=== PATIENT | male | born 1955 | race Caucasian/White ===

== ENCOUNTER 2018-11-23 04:57 | Inpatient (IN) ==
--- NOTE | 2018-11-14 07:57 | History & Physical Report ---
Date of Service November 14, 2018 Date of Surgery: 11-23-18 Assessment & Plan (1) Tricompartment osteoarthritis of right knee: Risks and benefits of procedure discussed in detail today, patient would like to proceed with a Right total knee replacement at [facility] as scheduled. obtain PATs at [facility]. Will place on ASA 81mg po bid x 1 month post op, f/u 2 weeks post op for routine post-operative care and x-ray, sooner if having any problems. will make arrangements for OPPT at the time of discharge. At this point in time, has failed conservative measures and would like to proceed with surgical intervention. History of Present Illness Chief Complaint: right knee pain Primary Care Provider: Levi Chan Mr Horn is a 63 year old male who is here for a follow up of right knee pain, presents for pre-op evaluation prior to a Right total knee replacement at [facility]. He presents with pain and decreased range of motion on the right side. He states that the symptoms have been chronic non-traumatic and occur intermittently. Currently the patient states that the symptoms are moderate and is described as throbbing and aching. He rates his current pain as 3/10 and worst is 7/10. The symptoms are aggravated by daily activities, walking and repetitive activities. In addition to right knee pain the patient is also experiencing crepitus, decreased mobility, instability, joint pain, limping, and stiffness. Prior NSAIDs include Motrin and Aleve and prior pain medications include Tylenol. Burke states that the symptoms are relieved by no specific activities. He has had previous xrays as well as MRI that shows degenerative changes medial compartment and patellofemoral joint. Allergies Allergy/AdvReac Type Severity Reaction Status Date / Time No Known Allergies Allergy Verified 11/09/18 15:36 Home Medications Home Medications Medication Instructions Recorded Confirmed Type multivitamin 1 tab PO QAM 11/09/18 11/09/18 History Past Med/Surg History Medical History Cardiac murmur as a child Heartburn History of hypertension Osteoarthritis Surgical History History of cardiac cath 1979 - [facility] - no stents/angioplasty History of tooth extraction Hx of aortic coarctation repair 1979 Family History Brother Family history of diabetes mellitus Social History Preferred Language: Ivorian Communication Ability: Effective Staff Command And Control Officer Required: No Beliefs That Will Affect Care: None Current Living Situation: Significant Other Other Information That Helps Us Care for You: No Feels Safe at Home: Yes Safety Concerns: Feels Safe At This Time Smoking Status: Never smoker Do You Dip or Chew Tobacco: No Second Hand Exposure: No Hx Alcohol Use: No Hx Substance Use: No Review of Systems Review of Systems: All systems reviewed & are unremarkable except as noted in HPI & below Constitutional: no fever, no chills and no sweats Respiratory: no cough and no dyspnea Cardiovascular: no chest pain, no dyspnea and no orthopnea Gastrointestinal: no abdominal pain, no nausea and no vomiting Musculoskeletal: as per Subjective / HPI Physical Exam Physical Exam: Ht: 5ft 11in Wt: 102 kg BP: 122/76 Pulse: 74 Constitutional: WD/WN, vitals as above no acute distress Respiratory: normal respiratory effort, lungs clear to auscultation no respiratory distress, no labored breathing and does not use accessory muscles Cardiovascular: RRR, no murmur, no edema Gastrointestinal (Abdomen): normal bowel sounds, soft, nontender, no hepatosplenomegaly Musculoskeletal: Right Knee Exam: Burke ambulates with a limp, there is no atrophy or ecchymosis no erythema, mild effusion, diffuse tenderness to the knee greatest over medial compartment, positive crepitation with motion, marty's negative, Posterior drawer- negative, anterior drawer negative, valgus stress negative, varus stress negative, no extensor lag, pain with active range of motion, Range of motion 0/3/115. No pain with active/passive ROM of ankle. Lower extremity strength normal. Lower extremity neuro-vascular is normal Results & Data Diagnostic Findings Right Knee X-ray from 10-17-18 showing advanced degenerative changes to the right knee particuarly medial compartment and the patellofemoral joint. xrays show narrowing of the medial compartment and patello-femoral joint with patellar spurring noted, there is osteophyte formation and subchondral sclerosis noted. overall varus alignment. no acute bony pathology noted.
--- NOTE | 2018-11-14 11:51 | Anesthesiology Consultation ---
Date of Service November 14, 2018 Assessment & Plan (1) Encounter for pre-operative examination: PCP clearance (Dr. Chan) 11/16 -- "Pre-op labs reviewed. Has LAD and possible old inferior OK (doubtful) but nothing acute. Labs and CXR look good. I think he is medically stable for surgery with mild increase surgical risk." Chart Review Chart Review: Acceptable Risk for Surgery and Patient seen in Pre Admission Testing Teaching & Discussion Instructed NPO after midnight before surgery, except medications with 15 cc of water. Medication instructions provided according to the PAT guidelines. History Surgery Operation Date: 11/23/18 07:00 Proposed Procedures p Right Total Knee Arthroplasty - Venancio Coulter DO Height/Weight Height: 5 ft 11 in Weight: 102.4 kg Allergies Allergy/AdvReac Type Severity Reaction Status Date / Time No Known Allergies Allergy Verified 11/09/18 15:36 Medications Home Medications Medication Instructions Recorded Confirmed Last Taken multivitamin 1 tab PO QAM 11/09/18 11/09/18 Unknown Past Medical History Medical History Heartburn History of hypertension PT reports being on a medication "at some point," self discontinued. 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, cuts firewood) Past Family History Family History Brother Family history of diabetes mellitus Past Surgical History Surgical History History of cardiac cath 1979 - [facility] - no stents/angioplasty History of tooth extraction Hx of aortic coarctation repair 1979 Past Anesthesia History No Hx of Anesthesia Complications and No Family Hx of Anesthesia Complications History of PONV No Hx of PONV and No Hx of Motion Sickness Social History Smoking Status: Never smoker Do You Dip or Chew Tobacco: No Hx Alcohol Use: No Hx Substance Use: No substance use type: does not use Review of Systems Pt denies any recent chest pain, shortness of breath, palpitations, cough, fever or URI. Physical Exam Vital Signs BP: 137/87 P: 65bpm SPO2: 96% RA T: 97.6 F R: 12 ENMT Mouth: + dental restorations (one cap on a molar); no chipped teeth and no loose teeth Thyromental Distance: > or= 3.5 Finger Breadths (3.5) Mallampati Class: II Neck normal visual inspection and + limited neck extension (mildly) Respiratory normal respiratory effort Auscultation: lungs clear to auscultation bilaterally Cardiovascular Rate/Rhythm: regular rate and regular rhythm Heart Sounds: no murmur Vessels: no carotid bruit Extremities: no edema Distant heart sounds. Testing Laboratory Results 11/14/18 12:42 11/14/18 12:42 PT 10.3 Seconds (9.0-12.0) 11/14/18 12:42 INR 1.0 (0.9-1.1) 11/14/18 12:42 APTT 26.6 Seconds (21.0-31.0) 11/14/18 12:42 Hemoglobin A1c 6.1 % (4.5-5.6) H 11/14/18 12:42 Urine Color Yellow 11/14/18 Unknown Urine Appearance Clear (Clear) 11/14/18 Unknown Urine pH 8.0 (4.5-7.5) H 11/14/18 Unknown Ur Specific [place] 1.023 (1.000-1.030) 11/14/18 Unknown Urine Protein Negative (Negative) 11/14/18 Unknown Urine Glucose (UA) Negative (Negative) 11/14/18 Unknown Urine Ketones Negative (Negative) 11/14/18 Unknown Urine Nitrite Negative (Negative) 11/14/18 Unknown Ur Leukocyte Esterase Negative (Negative) 11/14/18 Unknown Blood Type O Negative 11/14/18 12:42 Antibody Screen NEGATIVE 11/14/18 12:42 11/14/18 Unknown Urine Culture - Final Urine,Clean Catch No growth - less than 1,000 colonies/mL. Electrocardiogram Date: 11/14/18 Findings: + NSR @ (60) Left axis deviation. Cannot r/o inferior infarct, age undetermined. No previous EKGs available. Chest X-Ray Date: 11/14/18 Findings: + NAD
--- NOTE | 2018-11-14 12:00 | PAT Medication Instructions ---
Medication Instructions Date of Service November 14, 2018 Home Medications multivitamin 1 tab PO QAM DO NOT take the morning of surgery multivitamin 1 tab PO QAM Other Notes If you have any questions please call us at [phone] or [phone] or [phone] or [phone]
[2018-11-14 13:20] LABS: Basophils # (auto) 0.01 K/uL (0-0.2); Basophils % (auto) 0.1 %; Eosinophils # (auto) 0.19 K/uL (0-0.5); Eosinophils % (auto) 2.2 %; Hemoglobin 16.6 g/dL (14.0-18.0); Immature Granulocytes # (auto) 0.04 K/uL (0.00-0.02); Immature Granulocytes % (auto) 0.5 %; Lymphocytes # (auto) 1.98 K/uL (1.2-3.4); Lymphocytes % (auto) 23.4 %; Mean Corpuscular Hgb Conc 35.3 g/dL (32-36); Mean Platelet Volume 11.6 fL (7.4-10.4); Monocytes # (auto) 0.54 K/uL (0.11-0.59); Monocytes % (auto) 6.4 %; Neutrophils % (auto) 67.4 %; Platelet Count 183 K/uL (130-400); RDW Coefficient of Variation 13.7 % (11.5-14.5); RDW Standard Deviation 44.2 fL (36.4-46.3); Red Blood Count 5.34 M/uL (4.7-6.1); White Blood Count 8.46 K/uL (4.8-10.8)
[2018-11-14 13:23] LABS: Appearance Urine Clear (Clear); Bilirubin Urine Negative (Negative); Blood Urine Negative (Negative); Color Urine Yellow; Glucose Urine UA Negative (Negative); Ketones Urine Negative (Negative); Leukocyte Esterase Urine Negative (Negative); Nitrite Urine Negative (Negative); Protein Urine Negative (Negative); Specific Gravity Urine 1.023 (1.000-1.030); Urobilinogen Urine Negative (Negative)
[2018-11-14 13:30] LABS: Partial Thromboplastin Time 26.6 Seconds (21.0-31.0); Prothrombin Time 10.3 Seconds (9.0-12.0)
--- NOTE | 2018-11-14 13:31 | XRay Report ---
XR chest Pre-admission PA/Lat HISTORY: 63 years-old Male pat preoperative exam. No acute chest complaints COMPARISON: None available TECHNIQUE: PA and lateral views of the chest FINDINGS: Cardiomediastinal and hilar silhouettes are within normal limits. A surgical clip projects over the u pper mediastinal distribution. There is no pneumothorax, pleural effusion, focal airspace consolidati on or overt pulmonary edema. Degenerative changes of the shoulders and spine. IMPRESSION: No acute process. The above report was generated using voice recognition software. It may contain grammatical, syntax o r spelling errors. Electronically signed by: Xu Wilson M.D. 11/14/2018 1:30 PM
[2018-11-14 13:46] LABS: Estimated Average Glucose 128 mg/dl; Hemoglobin A1C 6.1 % (4.5-5.6)
[2018-11-14 15:05] LABS: Albumin Level 3.9 gm/dl (3.4-5.0); BUN Creatinine Ratio 15.9 (10-20); Calcium 9.1 mg/dl (8.5-10.1); Creatinine Clr Calc Pharmacy 81.6 ml/min; Est GFR (African American) 81.2; Est GFR (Non-African American) 70.1; Potassium 4.5 mmol/L (3.5-5.1)
[2018-11-23] MEDS ORDERED: METOCLOPRAMIDE HCL 10 MG TABLET PO SCH (06:00)
[2018-11-23] MEDS ORDERED: FAMOTIDINE 20 MG TAB PO SCH (06:00)
[2018-11-23] MEDS ORDERED: CEFAZOLIN 2000MG 2,000 MG/15 ML SYR IV SCH (06:00)
[2018-11-23] MEDS ORDERED: GABAPENTIN 300 MG CAP PO SCH (06:00)
[2018-11-23] MEDS ORDERED: dexAMETHasone 4 MG TAB PO SCH (06:00)
[2018-11-23] MEDS ORDERED: ROPIVACAINE 0.5% HCL/PF 150 MG, BUPIVACAINE 0.5% MPF 30 ML, EPINEPHrine 30MG/30ML (OR U... INFIL SCH (06:00)
[2018-11-23] MEDS ORDERED: TRANEXAMIC ACID 1,000 MG **IV Pre-op IV SCH (06:00)
[2018-11-23] MEDS ORDERED: LR 500ML BOLUS, THEN 15ML/HR IV SCH (06:00)
[2018-11-23] MEDS ORDERED: CeleBREX 200 MG CAP PO SCH (06:00)
[2018-11-23] MEDS ORDERED: ACETAMINOPHEN 500 MG TAB PO SCH (06:00)
[2018-11-23] MEDS ORDERED: EPINEPHrine INJ 1 MG/ML AMP ONE (06:22)
[2018-11-23] MEDS ORDERED: ROPIVACAINE 0.5% 5 MG/ML 30 ML VIAL ONE (06:22)
[2018-11-23] MEDS ORDERED: BUPIVACAINE 0.5 % 5 MG/1 ML PF 10ML VIAL ONE (06:22)
[2018-11-23] MEDS ORDERED: TRANEXAMIC ACID 1,000 MG **IV Intra-op IV SCH (06:30)
[2018-11-23] MEDS ORDERED: BACITRACIN INJ 50,000 UNIT VIAL ONE (06:35)
[2018-11-23] MEDS ORDERED: ORTHO JOINT ANESTHETIC ONE (06:35)
[2018-11-23] MEDS ORDERED: MIDAZOLAM HCL 1 MG/ML 2ML VIAL ONE (06:40)
--- NOTE | 2018-11-23 07:02 | History & Physical Bridge Note ---
Date of Service November 23, 2018 History & Physical Bridge Note I have examined the patient, reviewed the History & Physical and in the interval since the performance of the History & Physical I have noted the following changes of clinical significance: no changes noted
[2018-11-23] MEDS ORDERED: ATROPINE SULFATE 0.1 MG/ML 10ML SYR IV PRN (07:15)
[2018-11-23] MEDS ORDERED: ePHEDrine sulfate 50 MG/ML AMP IV PRN (07:15)
[2018-11-23] MEDS ORDERED: fentaNYL citrate 100 MCG/2 ML VIAL IV PRN (07:15)
[2018-11-23] MEDS ORDERED: ONDANSETRON INJ 2 MG/ML 2 ML VIAL IV PRN ×2 (07:15→10:19)
[2018-11-23] MEDS ORDERED: HYDROmorphone INJ 1 MG/ML SYRINGE IV PRN (07:15)
[2018-11-23] MEDS ORDERED: PROPOFOL IV EMULSION 10 MG/ML 20 ML VIAL IV ONE ×2 (07:45→07:54)
[2018-11-23] MEDS ORDERED: LIDOCAINE HCL 2% 2 ML VIAL/AMP(20MG/ML) INFIL ONE (07:45)
[2018-11-23] MEDS ORDERED: ePHEDrine sulfate 50 MG/ML SYR ONE (08:05)
--- NOTE | 2018-11-23 08:12 | Operative Report ---
Post Operative Report Pre & Post Diagnosis Operation Date: 11/23/18 07:00 Pre-Op Diagnosis: Unilateral Primary Osteoarthritis, Right Knee Post-Op Diagnosis: Unilateral Primary Osteoarthritis, Right Knee Procedure Operation Date: 11/23/18 07:00 Actual Procedures p Right Total Knee Arthroplasty(Right) utilizing [employer] journey to non- block total knee arthroplasty right size 5 femur 5 tibia 10 polyethylene 35 oval patella- Venancio Coulter DO Surgeon Venancio Coulter DO Bale Piler Jus WARNER Estimated Blood Loss 5 Findings Consistent with Post-Op Diagnosis Patient presents with severe end-stage tricompartmental degenerative joint disease of the right knee with varus alignment subchondral cystic changes marginal osteophyte eburnated bone moderate to large effusion no response to conservative management the above intraoperative findings were noted. Specimens Bone and cartilage Drains Medium bore Hemovac Complications none Disposition Accompanied Patient To Recovery: No Disposition: Recovery Room Indications Patient presents as a 64-year-old white male with severe end-stage tricompartmental degenerative joint disease failing attempts at conservative management and physical therapy anti-inflammatories relative rest activity modification corticosteroid injections Visco supplementation patient presents for right total knee arthroplasty Description of Procedure After proper prepping and draping of the Right lower extremity anterior midline incision was made over the region of the extensor extensor mechanism after meticulous hemostasis was obtained and maintained in subcutaneous tissues a medial parapatellar incision was made The patella was subluxed lateralward the medial lateral gutter were cleaned from any hypertrophic synovitis and scar tissue of the distal femoral block was placed and the distal femoral osteotomy cut was made subsequently the chamfers anterior and posterior osteotomy cuts were made utilizing the 4-in-1 block the tibia was subsequently subluxed anteriorward medial and ateral meniscal remnants were excised in their entirety remnants of the anterior and posterior cruciate ligaments were excised in their entirety excellent exposure of the proximal tibia was obtained the tibial osteotomy guide was placed on the proximal tibial osteotomy cut was made once again the knee was irrigated with copious amounts of sterile saline solution the patella was subsequently everted lateralward thickened scar tissue around the patella was removed the patella was subsequently cut utilizing a freehand technique and was drilled prepared for final preparation and placement of patella socially flexion-extension gaps were checked and the equal and symmetric trials were placed to the appropriate femoral and tibial trials with poly-spacer being placed for equal flexion and extension gaps and full range of motion including extension to 0 and flexion to 140 the trial components after having been taken to recovery range of motion was subsequently removed meticulous hemostasis was obtained and maintained subsequently a knee block injection of joint cocktail including ropivacaine 0.5% 150 mg. Bupivacaine 0.5% epinephrine 1-200,030 mL's toradol 30 mg dexamethasone 4 mg ketamine 10 mg clonidine 100 micrograms normal saline solution 30 mg was infiltrated into the soft tissues of the posterior knee medial lateral gutters and periosteal synovium special attention was paid to protect neurovascular structures at all times subsequently trial components having been removed the knee was irrigated with sterile saline solution. debris was removed the proximal tibia was subsequently prepared and was made ready for the placement of the tibial component tibial component was also cemented and tamped into position the femoral component was subsequently placed and cemented in the position the patellar component was subsequently cemented in position because hemostasis once again obtained and maintained wound having been thoroughly irrigated with debridement and debridement lavage was performed as well as a medial parapatellar incision closed with #1 Vicryl in interrupted fashion subcutaneous was closed with #2 Vicryl skin was closed with skin clips. PA-C was necessary for prepping and drapping as well as wound closure of deep fascia Sub cutaneous tissue and skin and was necessary for the case. A sterile compressive dressing was placed patient was taken to recovery in stable condition of report dictated by Yfn I attest to the content of the Intraoperative Record and any orders documented therein. Any exceptions are noted below. I attest to the content of the Intraoperative Record and any orders documented therein. Any exceptions are noted below.
--- NOTE | 2018-11-23 09:10 | XRay Report ---
XR knee RT 2V routine CLINICAL HISTORY: Surgical Post Op DEGENERATIVE ARTHRITIS COMPARISON: None. DISCUSSION: There are postsurgical changes of a total right knee arthroplasty and patellar resurfacin g. Overlying skin rose marie and surgical drains are evident. There is air within the soft tissues consi stent with recent surgery. The femoral and tibial components appear well seated. IMPRESSION: Postsurgical changes of a total right knee arthroplasty. Electronically signed by: Jacob King M.D. 11/23/2018 9:08 AM
--- NOTE | 2018-11-23 09:55 | Anesthesiology Progress Note ---
Date of Service November 23, 2018 Anesthesia Post Procedure Vital Signs Vital Signs: Temp Pulse Pulse Resp BP Pulse Ox 11/23/18 09:50 58 L 15 118/68 93 11/23/18 09:40 67 16 116/70 94 11/23/18 09:30 68 16 123/69 94 11/23/18 09:20 36.4 C L 73 16 125/74 94 11/23/18 09:10 74 16 121/70 94 11/23/18 09:00 75 16 126/73 95 11/23/18 08:51 36.0 C L 74 14 110/57 L 95 11/23/18 05:36 36.6 C 72 20 156/100 H Pain Intensity Right Knee: Pain Intensity: 2 Transfer of Care Handoff Completed per policy Notes Mental Status: alert / awake / arousable and participated in evaluation Patient Amnestic to Procedure: Yes Nausea / Vomiting: adequately controlled Pain: adequately controlled Airway Patency, RR, SpO2: stable & adequate BP & HR: stable & adequate Hydration State: stable & adequate Neuraxial Anesthesia: was administered and sensory block is resolving Anesthetic Complications: no major complications apparent and Pt Satisfied with anesthetic care
[2018-11-23] MEDS ORDERED: NALOXONE HCL 0.4 MG/1 ML VIAL/CARP IV PRN (10:19)
[2018-11-23] MEDS ORDERED: BISACODYL 10 MG SUPP PR PRN (10:19)
[2018-11-23] MEDS ORDERED: HYDROmorphone INJ 0.5 MG/0.5 ML SYR IV PRN (10:19)
[2018-11-23] MEDS ORDERED: METOCLOPRAMIDE HCL INJ 5 MG/ML 2 ML VIAL IV PRN (10:19)
[2018-11-23] MEDS ORDERED: ALUMINUM/MAGNESIUM SUSP 30 ML UDC PO PRN (10:19)
[2018-11-23] MEDS ORDERED: OXYCODONE HCL IR 5 MG TAB (IMMEDIATE RELEASE) PO PRN (10:19)
[2018-11-23] MEDS ORDERED: SODIUM CHLORIDE 0.9% 1000ML 1,000 ML IV SCH (10:19)
[2018-11-23] MEDS ORDERED: MAGNESIUM HYDROXIDE SUSP 30 ML UDC PO PRN (10:19)
[2018-11-23] MEDS: KETOROLAC TROMETHAMINE 15 MG/ML VIAL IV SCH ×2 (12:02→17:43)
[2018-11-23] MEDS: DOCUSATE SODIUM 100 MG CAP PO SCH ×2 (12:06→21:28)
[2018-11-23] MEDS: MULTIVITAMIN TAB PO SCH (12:58)
[2018-11-23] MEDS: ACETAMINOPHEN 500 MG TAB PO SCH ×2 (13:14→21:28)
[2018-11-23] MEDS: CEFAZOLIN 2000MG 2,000 MG/15 ML SYR IV SCH ×2 (15:20→22:09)
[2018-11-23] MEDS: FERROUS GLUCONATE 324 MG TAB PO SCH (17:43)
[2018-11-23] MEDS ORDERED: Nursing to Pharmacy Communication ONE (19:57)
[2018-11-23] MEDS ORDERED: SENNA 8.6 MG TAB PO SCH (21:00)
[2018-11-23] MEDS: ASPIRIN 81 MG ECTAB PO SCH (21:29)
[2018-11-24] MEDS: KETOROLAC TROMETHAMINE 15 MG/ML VIAL IV SCH ×3 (00:12→11:56)
[2018-11-24] MEDS: ACETAMINOPHEN 500 MG TAB PO SCH ×2 (05:39→13:29)
[2018-11-24 06:07] LABS: Hematocrit (blood only) 39.5 % (42-52); Hemoglobin 13.9 g/dL (14.0-18.0); Mean Corpuscular Hgb Conc 35.2 g/dL (32-36); Mean Corpuscular Volume 86.8 fL (80-100); Mean Platelet Volume 11.4 fL (7.4-10.4); Platelet Count 175 K/uL (130-400); RDW Coefficient of Variation 13.9 % (11.5-14.5); RDW Standard Deviation 43.8 fL (36.4-46.3); Red Blood Count 4.55 M/uL (4.7-6.1); White Blood Count 18.79 K/uL (4.8-10.8)
[2018-11-24 06:45] LABS: BUN Creatinine Ratio 18.1 (10-20); Est GFR (African American) 77.8; Est GFR (Non-African American) 67.1; Potassium 4.2 mmol/L (3.5-5.1)
--- NOTE | 2018-11-24 08:00 | Anesthesiology Progress Note ---
Date of Service November 24, 2018 Anesthesia Post Procedure Vital Signs Vital Signs: Temp Pulse Pulse Resp BP Pulse Ox 11/24/18 07:24 36.6 C 69 20 120/77 97 11/24/18 03:53 37.0 C 65 18 126/73 95 11/23/18 23:52 36.6 C 64 17 125/69 94 11/23/18 20:06 36.9 C 61 18 138/74 96 11/23/18 16:35 36.6 C 73 16 133/75 95 11/23/18 13:10 36.5 C 75 18 133/67 96 11/23/18 12:09 73 20 126/64 95 11/23/18 11:10 71 18 119/72 96 11/23/18 10:39 36.5 C 63 18 114/65 95 11/23/18 10:10 36.6 C 65 14 111/67 96 11/23/18 09:50 58 L 15 118/68 93 11/23/18 09:40 67 16 116/70 94 11/23/18 09:30 68 16 123/69 94 11/23/18 09:20 36.4 C L 73 16 125/74 94 11/23/18 09:10 74 16 121/70 94 11/23/18 09:00 75 16 126/73 95 11/23/18 08:51 36.0 C L 74 14 110/57 L 95 Pain Intensity Right Knee: Pain Intensity: 2 Notes Mental Status: alert / awake / arousable and participated in evaluation Patient Amnestic to Procedure: Yes Nausea / Vomiting: adequately controlled Pain: adequately controlled Airway Patency, RR, SpO2: stable & adequate BP & HR: stable & adequate Hydration State: stable & adequate Neuraxial Anesthesia: was administered and sensory block resolved Anesthetic Complications: no major complications apparent and Pt Satisfied with anesthetic care
[2018-11-24] MEDS: DOCUSATE SODIUM 100 MG CAP PO SCH (09:15)
[2018-11-24] MEDS: ASPIRIN 81 MG ECTAB PO SCH (09:16)
[2018-11-24] MEDS: FERROUS GLUCONATE 324 MG TAB PO SCH (09:16)
[2018-11-24] MEDS: MULTIVITAMIN TAB PO SCH (09:16)
--- NOTE | 2018-11-24 10:00 | Orthopedic Progress Note ---
Date of Service November 24, 2018 Assessment & Plan (1) Tricompartment osteoarthritis of right knee: 63 yo male stable POD #1 s/p right TKA 1. Med management 2. DVT prophylaxis- ASA, SCDs 3. PT/OT 4. D/C planning- home w/ OPPT when drain output decreases Subjective Pt resting in chair, pain controlled, denies complaints, would like to be d/c'd if possible, told depends on drain output Physical Exam Physical Exam: Toes mobile, N/V/I, dressing and drain in place Results & Data Vital Signs (Past 12 Hours) Vital Signs Temp Pulse Resp BP Pulse Ox 11/24/18 07:24 36.6 C 69 20 120/77 97 11/24/18 03:53 37.0 C 65 18 126/73 95 11/23/18 23:52 36.6 C 64 17 125/69 94 Laboratory Results 11/24/18 11/24/18 11/23/18 Range/Units 05:48 05:48 05:42 WBC 18.79 H (4.8-10.8) K/uL RBC 4.55 L (4.7-6.1) M/uL Hgb 13.9 L (14.0-18.0) g/dL Hct 39.5 L (42-52) % MCV 86.8 (80-100) fL MCH 30.5 (25-34) pg MCHC 35.2 (32-36) g/dL RDW Std Deviation 43.8 (36.4-46.3) fL RDW Coeff of Raghav 13.9 (11.5-14.5) % Plt Count 175 (130-400) K/uL MPV 11.4 H (7.4-10.4) fL Sodium 139 (136-145) mmol/L Potassium 4.2 (3.5-5.1) mmol/L Chloride 109 H (98-107) mmol/L Carbon Dioxide 24 (21-32) mmol/L Anion Gap 6.0 (3-11) BUN 21 H (7-18) mg/dl Creatinine 1.14 (0.6-1.4) mg/dl Est Cr Clr Drug Dosing 79.0 ml/min Est GFR ( Amer) 77.8 Est GFR (Non-Af Amer) 67.1 BUN/Creatinine Ratio 18.1 (10-20) Glucose 129 H (70-99) mg/dl Calcium 8.0 L (8.5-10.1) mg/dl Hepatitis C Ab Screen Neg (Neg)
--- NOTE | 2018-11-26 19:39 | Discharge Summary ---
DISCHARGE DIAGNOSIS: Degenerative joint disease, right knee. SECONDARY DIAGNOSES: Cardiac murmur as a child, heartburn, history of hypertension, osteoarthritis. CONSULTS: None. COMPLICATIONS: None. PROCEDURES: Right total knee arthroplasty performed by Dr. Coulter on 11/23/2018. BRIEF HISTORY: As dictated in the history and physical. HOSPITAL SUMMARY: The patient was admitted on the above-noted date and had the above-noted surgery performed, which he tolerated well. On the first postoperative day, patient was resting in a chair at the bedside. Pain was controlled. He had no complaints and was asking to be discharged to home if possible. It was discussed that he would have to depend on his drain output and also how he does in PT and OT protocols. Toes were mobile. Neurovascularly intact. Dressings and drain were in place. Vital signs were stable. He was afebrile. Hemoglobin was 13.9 and he was started on PT and OT protocols and he was continued on his DVT prophylaxis and pain management. He progressed well with his physical therapy, ambulating 325 feet x2 and was remaining stable. Drain was removed and it was felt he could be discharged to home. For further review, please see chart. LABORATORY AND X-RAY DATA: As per chart. DISCHARGE INSTRUCTIONS: The patient was discharged home in satisfactory condition on 11/24/2018. DIET: Regular. ACTIVITY: Weightbearing as tolerated on the affected extremity. Follow TKA instruction sheets and special care instructions as noted. Follow up with Dr. Coulter in 2 weeks. The patient to call for appointment if one has not been made for you. DISCHARGE MEDICATIONS: Acetaminophen 1000 mg p.o. q.8 hours, aspirin 81 mg p.o. b.i.d., oxycodone 5 mg p.o. q.6 hours p.r.n. and resume taking a multivitamin at home.
== END 2018-11-24 13:39 | disposition home or self-care (01) | DRG 470 ==
LOC: ASU 04:57 → 3E 08:57